=== PATIENT | male | born 1955 | race Asian ===

== ENCOUNTER → 2023-10-27 | Outpatient (CLI) | payer MEDICARE, OTHER, SELFPAY ==
[2023-10-27 16:58] LABS: Cholesterol 188 mg/dL (200); High Density Lipoprotein 72 mg/dL; Triglycerides 125 mg/dL; Uric Acid 7.2 mg/dL (3.5-7.2); Very Low Density Lipoprotein 25 mg/dL (5-40)
== END | disposition home or self-care (01) ==
LOC: BIMLAB 15:33
PROVIDERS: PCP Internal Medicine; Visit Provider Internal Medicine
DX: M10.9 Gout, unspecified (principal); I10 Essential (primary) hypertension
CPT/HCPCS: 36415; 80061; 84550

== ENCOUNTER 2024-07-12 10:00 | Outpatient (RCR) | payer MEDICARE, BC, SELFPAY ==
--- NOTE | 2024-03-16 14:32 | HP.PTEVAL ---
Patient's Visit Information Visit Information Visit Information: NICHO GATICA is a 68 year old M referred to Physical Therapy by ELSI Kenney with a diagnosis of PAIN IN RIGHT SHOULDER ,SHOULDER LESIONS ,LEFT. Date of Evaluation: 03/16/24 Physical Therapist: Marvin Velasquez, PT, Cert MDT, OCS Visit Plan Frequency: 2x /Week Duration: 4 Weeks Plan: PT INTERVENTIONS RTC/SCAPULAR STRENGTHENING ,POSTURAL EX'S ,QUADS/HAMS/HIP STRENGTHENING AND FUNCTIONAL STRENGTHENING WITH PROGRESSION WITH GYM EX'S Subjective Subjective: This 68 y/o male presents to physical therapy with left shoulder pain and and knee pain. Patient has had left shoulder pain many months last July . Seen DR tried injection helped but in October pain started again. Thought to possible tendonitis . Referred to orthopedic Dr next Tue . Prescribed meloxicam.Imaging of shoulder. Aggravating lifting something heavy OH and night.,Feels heavy. Alleviating cortisone injection. Pain described as ache. Patient pain affects sleeping. Pain located located lateral deltoid. Patient located pain located posterior knee . Aggravating factors resting inactivity in chair feels ache. Pain increase with long rest. Occasionally stairs. No pain at night in knee. Pain in shoulder and knee condition affects QOL and function. Patient goals to decrease pain. 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 Pain Left Shoulder: Pain Intensity (Out of 10): 2 Pain Intensity Range: 10 Objective Objective: POSTURE: rounded shoulders head forward NEURO: denies paresthesia/tingling PALAPTION: posterior right knee AROM: shoulder flexion/abduction 160 pain at ER with OP ,ER 90 ,IR L1 MMT: ( peak force) infraspinatus 10.3 ,supraspinatus 9.1 ,deltoid 11.3 GAIT: reciprocal pattern AROM: supine flexion 0-125 degrees ,0-135 degrees flexion MMT: quads/hams/hip 4/5 ,ankle 5/5 Special Tests R Knee Leonard - Meniscus: Negative R Knee Patellar Grind - PFS: Negative R Knee Medial Patellar Plica - Plica Syndrome: Negative L Shoulder External Rotation Lag Test - RC Tear: Negative L Shoulder Lift Off Test - Subscapular Tear: Negative L Shoulder Drop Sign - IS Test: Negative L Shoulder Empty Can - SS: Positive L Shoulder Neer - Impingement: Positive L Shoulder Adrian Erick - Impingement: Positive L Shoulder Biceps Load Test - Labrum: Negative L Shoulder Speeds Test - Labrum/Biceps: Negative Balance/Special Test Scores Quick DASH Score: 27.2725 Goals Goal 1:: Patient to be I with HEP for shoulder and knee Goal Time Frame: 4-6 Weeks Goal 2:: Patient has to demonstrate 60% improvement with less pain and improved function Goal Time Frame: 4-6 Weeks Goal 3:: Patient to improve peak force RTC by 5-10# to improve OH activities Goal Time Frame: 4-6 Weeks Goal 4:: Patient to improve shoulder oswestry score by 5 points to improve QOL Goal Time Frame: 4-6 Weeks Goal 5:: Patient be able to perform walking ,standing and stairs without symptoms. Goal Time Frame: 4-6 Weeks Rehabilitation Potential Physical Therapy Diagnosis: Patient has left shoulder tendonitis with weakness RTC impairs OH activities and mild pain knee with inactivity thus benefit from skilled PT Rehabilitation Potential: Good Anticipated Interventions Patient/Client Instruction: Educate patient on: Condition and Plan of Care For the Purpose of:: To decrease pain, To increase ROM, To improve muscle performance and motor function, To increase tolerance to activity/condition/position, To improve ability of physical actions for home/community/work/leisure, To improve gait and locomotor functions, To improve health of tissue, To decrease soft tissue restriction, To increase flexibility/ROM, To improve safety and To improve tolerance to ADL's Therapeutic Exercise to Include: Strength training, Postural training, Flexibilty training and Scapular Strength/Stabilization Comment: RTC QUADS/HAMS/HIP For the Purpose of:: To decrease pain, To increase ROM, To improve muscle performance and motor function, To improve ability to perform ADL's, To increase tolerance to activity/condition/position, To improve ability of physical actions for home/community/work/leisure, To improve health of tissue, To decrease soft tissue restriction and To increase flexibility/ROM Text: Thank you for the opportunity to evaluate your patient. For Medicare and Medicare HMO plans, please review the plan of care and approve it. It will need to be FAXED BACK to us at [phone] for Medicare purposes. For Medicare only, by signing this I certify the plan of care. Please let me know if there are questions or concerns regarding this plan of care. Physician Signature: Date:
--- NOTE | 2024-04-25 09:55 | HP.PTREVAL ---
Re-Evaluation Intro: ELSI Kenney, It has been my pleasure to treat NICHO GATICA over the last 9 visits for PAIN IN RIGHT SHOULDER ,SHOULDER LESIONS ,LEFT. Please see the progress note below for an update on the physical therapy plan of care! Subjective Subjective: Doing alot better knee no pain ~ 90 % better Objective Objective/Function: *Patient with benefit from skilled PT to increase strength RTC and decrease pain goals are updated and appropriate* POSTURE: rounded shoulders head forward NEURO: denies paresthesia/tingling PALAPTION: posterior right knee AROM: shoulder flexion/abduction 160 pain at ER with OP ,ER 90 ,IR L1 MMT: ( peak force) infraspinatus 16.9 ,supraspinatus 17.1 ,deltoid 21..3 GAIT: reciprocal pattern AROM: supine flexion 0-125 degrees ,0-135 degrees flexion MMT: quads/hams/hip 4/5 ,ankle 5/5 Plan Plan Plan: PT INTERVENTIONS RTC/SCAPULAR STRENGTHENING ,POSTURAL EX'S ,QUADS/HAMS/HIP STRENGTHENING AND FUNCTIONAL STRENGTHENING WITH PROGRESSION WITH GYM EX'S Balance/Gait/Functional tests Balance/Special Test Scores Quick DASH Score: 18.1800 Goals Goals Goal 1:: Patient to be I with HEP for shoulder and knee Goal Time Frame: 4-6 Weeks Goal Progress: Progressing Goal 2:: Patient has to demonstrate 70% improvement with less pain and improved function( new goals) Goal Time Frame: 4-6 Weeks Goal 3:: Patient to improve peak force RTC by 5-10# to improve OH activities( new goal) Goal Time Frame: 4-6 Weeks Goal 4:: Patient to improve shoulder oswestry score by 5 points to improve QOL( new goal) Goal Time Frame: 4-6 Weeks Goal 5:: Patient be able to perform walking ,standing and stairs without symptoms. Goal Time Frame: 4-6 Weeks Goal Progress: Progressing Anticipated Interventions Anticipated Interventions Patient/Client Instruction: Educate patient on: Condition and Plan of Care For the Purpose of:: To decrease pain, To increase ROM, To improve muscle performance and motor function, To increase tolerance to activity/condition/position, To improve ability of physical actions for home/community/work/leisure, To improve gait and locomotor functions, To improve health of tissue, To decrease soft tissue restriction, To increase flexibility/ROM, To improve safety and To improve tolerance to ADL's Therapeutic Exercise to Include: Strength training, Postural training, Flexibilty training and Scapular Strength/Stabilization Comment: RTC QUADS/HAMS/HIP For the Purpose of:: To decrease pain, To increase ROM, To improve muscle performance and motor function, To improve ability to perform ADL's, To increase tolerance to activity/condition/position, To improve ability of physical actions for home/community/work/leisure, To improve health of tissue, To decrease soft tissue restriction and To increase flexibility/ROM Re-Evaluation Ending Re-evaluation ending: Please do not hesitate to contact me at [phone] by phone or if you have questions or concerns regarding this new plan of care! Sincerely, Marvin Velasquez, PT, Cert MDT, OCS
--- NOTE | 2024-07-12 10:48 | HP.PTDCSUM_ITS ---
Discharge Summary D/C summary: It has been my pleasure to treat NICHO GATICA referred by ELSI Kenney, with the diagnosis of PAIN IN RIGHT SHOULDER ,SHOULDER LESIONS ,LEFT for a total of 18 visit(s). Discharge Date: 07/12/24 Please see the following information for a summary of their discharge status. Subjective Subjective: Seems to be worse .. in left shoulder not better overall Pain is worse with sleeping Pain Left Shoulder: Pain Intensity (Out of 10): 2 Overall Improvement % Improvement: 70 Objective Objective/Function: NEURO: denies paresthesia/tingling PALAPTION: posterior right knee AROM: shoulder flexion/abduction 160 ,ER 90 ,IR L1 MMT: ( peak force) infraspinatus 18.1 ,supraspinatus 19.5 ,deltoid 21..3 GAIT: reciprocal pattern AROM: supine flexion 0-1355 degrees ,0-135 degrees flexion MMT: quads/hams/hip 4/5 ,ankle 5/5 Goals Goal 1:: Patient to be I with HEP for shoulder and knee Goal Progress: Goal Met Goal 2:: Patient has to demonstrate 70% improvement with less pain and improved function( new goals) Goal Progress: Goal Met Goal 3:: Patient to improve peak force RTC by 5-10# to improve OH activities( ne w goal) Goal Progress: Progressing Goal 4:: Patient to improve shoulder oswestry score by 5 points to improve QOL( new goal) Goal Progress: Progressing Goal 5:: Patient be able to perform walking ,standing and stairs without symptoms. Goal Progress: Progressing Plan Plan: RTD D/C Information Discharge Comments: HEP d/c sentence: If there are questions or concerns regarding this patient's physical therapy, please feel free to call me at [phone]. Thank you for the referral of this patient. Sincerely, Marvin Velasquez, PT, Cert MDT, OCS Balance/Gait/Functional tests Balance/Special Test Scores Quick DASH Score: 18.1800 Improvement % Improvement: 70
== END 2024-07-12 19:00 | disposition home or self-care (01) ==
LOC: PT 10:00
PROVIDERS: PCP Internal Medicine; Referring Provider Physician Assistant; Visit Provider Physician Assistant
DX: M25.561 Pain in right knee (principal); M75.82 Other shoulder lesions, left shoulder
CPT/HCPCS: 97110; 97140; 97162; 97530

== ENCOUNTER → 2024-07-26 | Outpatient (CLI) | payer MEDICARE, BC, SELFPAY ==
[2024-07-26 17:11] LABS: Absolute Lymphocyte Count 1.83 X10^3/uL (0.83-4.51); Absolute Neutrophil Count 3.6 X10^3/uL (2.0-7.7); Basophil# 0.03 X10^3/uL; Basophil% 0.5 % (0-1); Eosinophil# 0.18 X10^3/uL; Eosinophils% 2.9 % (0-5); Hematocrit 41.5 % (40-54); Hemoglobin 13.3 g/dL (13.0-16.5); Lymphocyte # 1.83 X10^3/ul (0.83-4.51); Lymphocyte % 29.4 % (19-41); Mean Corpuscular Hgb 29.4 pg (27.0-32.0); Mean Corpuscular Volume 91.6 fL (80-94); Mean Platelet Vol. 11.2 fl (6.2-12.0); Monocyte# 0.54 X10^3/uL; Monocyte% 8.7 % (0-10); NRBC Flagged by Analyzer 0 % (0-5); Neutrophil # 3.62 X10^3/uL (2.7-7.7); Neutrophil % 58.2 % (47-70); Platelet Count 197 K/mm3 (150-450); RBC Distribution Width CV 12.9 % (11.6-14.6); RBC Distribution Width SD 43.8 fl (35.1-43.9); Red Blood Count 4.53 M/mm3 (4.6-6.2); White Blood Count 6.2 K/mm3 (4.4-11.0)
[2024-07-26 17:48] LABS: ALB/GLOB Ratio 0.9 RATIO (0.9-2.4); AST(SGOT) 17 U/L (15-37); Alanine Aminotransfer ALT/SGPT 22 U/L (16-61); Albumin, Serum 3.3 g/dL (3.2-5.0); Alkaline Phosphatase 57 U/L (45-117); Anion Gap 6 (5-15); BUN 20 mg/dL (7-18); Calcium,Total 9.2 mg/dL (8.5-10.1); Chloride 106 mmol/L (98-107); Creatinine, Serum 1.11 mg/dL (0.70-1.30); EST Glomerular Filtration Rate 70 mL/min (>60); Est Glom Filt Rate - Afr Amer 84 mL/min (>60); Globulin 3.6 g/dL (2.2-4.2); Glucose 106 mg/dL (74-106); PSA,Total - Annual Screen 5.98 ng/mL (0.00-4.00); Potassium 3.5 mmol/L (3.5-5.1); Protein, Total 6.9 g/dL (6.4-8.2); Sodium Level 140 mmol/L (136-145)
== END | disposition home or self-care (01) ==
LOC: BIMLAB 15:51
PROVIDERS: PCP Internal Medicine; Referring Provider Internal Medicine; Visit Provider Internal Medicine
DX: I10 Essential (primary) hypertension (principal); Z12.5 Encounter for screening for malignant neoplasm of prostate
CPT/HCPCS: 36415; 80053; 84153; 85025; G0103

== ENCOUNTER 2024-07-27 23:53 | Emergency (ER) | payer MEDICARE, BC, SELFPAY ==
[2024-07-27 23:54] VITALS: BP 148/82; PULSE 57; RESP 18; TEMP 36.5; O2SAT 96; BMI 32.3
--- NOTE | 2024-07-28 00:05 | EDS_ITS ---
HPI History of Present Illness Chief Complaint: Laceration Informant: patient and spouse/S.O. Narrative Narrative: 69-year-old male states he was trying to plug something into an outlet in his kitchen, and was right next to the kitchen knives, and his hand accidentally brushed against one of them and he sustained a laceration to his finger as a result. [id number], his right middle finger was affected, he denies any loss of function, numbness. Last tetanus was 3 years ago. Tetanus Immunization: <5 years [facility] Medical History Bilateral foot pain Health care maintenance Hypersomnolence Eye abnormalities Fungal dermatitis Hernia (06/13/11) Gout Bone fracture Hyperlipemia Hypertension Home Medications ?Medication ?Instructions ?Recorded ?Last Taken ?Type Kenalog 40 mg/mL suspension for 80 mg (2 mL) intra-art icular ONCE 08/17/23 Unknown Clinic injection (triamcinolone acetonide) Subacromial rotato r cuff impingement #2 mL valsartan 160 1 tab PO QDAY 10/27/23 Unkno wn History mg-hydrochlorothiazide 12.5 mg tablet colchicine 0.6 mg tablet mg PO PRN 11/24/23 Unknown H istory ezetimibe 10 mg-rosuvastatin 20 mg 1 tab PO QDAY #90 t abs 06/22/24 Unknown Rx tablet amlodipine 10 mg tablet 10 mg PO DAILY #90 TABLETS 0 07/11/24 Unknown Rx Allergy/AdvReac Type Severity Reaction Status Date / Time Penicillins Allergy Mild Rash Verified 07/27/24 23:54 Family History Father Alcoholic Myocardial infarction Heart disease Hypertension High cholesterol Brother Age: 76 Myocardial infarction Surgical History History of tonsillectomy (06/07/1965) History of colonoscopy (06/07/23) Hx of tonsillectomy H/O hernia repair Social History adopted: No household members: spouse current occupational status: employed 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 [employer] current occupational exposures/hazards: No pets and animals: No history of recent travel: Yes sexually active: Yes Smoking Status: Former smoker quit date: 06/27/96 Tobacco: How many years used: 29 second hand exposure: No alcohol intake: current alcohol intake frequency: 0-2 drinks per day substance use type: does not use well-balanced diet: daily or most days caffeine: Yes eating out: rarely or never during the past year weight has: remained stable frequency: daily duration: 30-45 minutes/day seatbelt use: always do you feel safe at home: Yes ROS ROS ED Constitutional Constitutional ED: Denies chills or fever(s) Musculoskeletal Musculoskeletal: Reports extremity pain; Denies neck pain Integumentary Reports laceration; Denies Abrasions or rash Neurologic Neurologic: Denies paresthesias or weakness EXAM Physical Exam Const Vital Signs: 07/27/24 23:54 Temperature 97.7 F L Temperature Source Oral Pulse Rate 57 L Respiratory Rate 18 Blood Pressure 148/82 H Blood Pressure Mean 104 Pulse Ox 96 Oxygen Delivery Method Room Air Positive well nourished and well developed General Appearance ED: well developed and NAD Neck full ROM and supple Back/Spine normal ROM and normal to inspection Extremity Extremity Narrative: 3 cm jagged laceration, mostly linear, clean appearing, to the dorsal radial aspect of the right long finger across the PIPJ. I do not see any extensor involvement, just subcutaneous fat. It is full-thickness. Extensor mechanism is intact against resistance without pain, FDS and FDP are intact without difficulty. There is no bony tenderness. No deformity. Neuro oriented x3, no focal motor deficits and no sensory deficits noted Sensorium / Orientation: alert Psych mental status grossly normal and thought process normal Skin no wounds Rashes: no rashes MDM MDM MDM Narrative Medical decision making narrative: Laceration was repaired and dressed with bacitracin see the procedure note. Tolerated well by the patient. This was a flap shaped, Y shaped laceration. It was mostly over the dorsal radial aspect of the proximal phalanx but the distal aspect of it included the PIPJ, requiring more sutures to distribute forces and allow him to bend without opening the wound and tearing sutures. At the level of the dorsal distal aspect of the PIPJ, the extensor tendon is able to be seen and does not appear to be injured. It appears that the laceration involve the subcutaneous tissues just overlying this. I examined the wound through range of the joint. I am giving him plastics information in case he has any issues with mobility of the finger which I do not expect him to have. Procedures Lacerations R middle finger: Length: 3 cm Depth: Sub Q (extensor visible, not injured) Shape: Flap Prep: Sterile Conditions and Chlorhexadine Laceration repair: Irrigated, Lidocaine (1%, 1.5cc), Local and Skin sutures Irrigated (ml): 60 Number of Sutures/Bernie: 8 Suture Information: Ethilon, Simple and 5-0 Discharge Plan Triage Chief Complaint: Laceration ED Provider: Jasiel Villanueva Dx/Rx/DC Orders Clinical Impression: Laceration of right middle finger w/o foreign body w/o damage to nail Instructions: ED Laceration Extremity Prescriptions: No Action valsartan-hydrochlorothiazide 160-12.5 mg tablet 1 tab PO QDAY triamcinolone acetonide [Kenalog] 40 mg/mL suspension 80 mg intra-articular ONCE Qty: 2 0RF colchicine 0.6 mg tablet PO PRN Patient Comments: TAKE 1 TABLET BY MOUTH TWICE A DAY NEEDED ezetimibe-rosuvastatin 10-20 mg tablet 1 tab PO QDAY Qty: 90 0RF amlodipine 10 mg tablet 10 mg PO DAILY Qty: 90 0RF Primary Care Provider: Gardenia Zavala Referrals: Gardenia Zavala MD [Primary Care Provider] - 10-14 Days suture removal (or ER or urgent care for suture removal) Cameron Hagen MD [Med Staff - Active Staff] - (if needed for any finger mobility issues) Print Language: Liberian Disposition Disposition: Home, Self Care
[2024-07-28] MEDS: Lidocaine 1% (20 ml mdv) 20 ML Vial INFILT (00:11)
== END 2024-07-28 01:29 | disposition home or self-care (01) ==
PROVIDERS: Emergency Provider Emergency Medicine; PCP Internal Medicine; Visit Provider Emergency Medicine
DX: S61.212A Laceration without foreign body of right middle finger without damage to nail, initial encounter (principal); W26.0XXA Contact with knife, initial encounter; I10 Essential (primary) hypertension; Z79.899 Other long term (current) drug therapy; Z87.891 Personal history of nicotine dependence
CPT/HCPCS: 12002; 99283

== ENCOUNTER → 2024-07-30 | Outpatient (CLI) | payer MEDICARE, OTHER, SELFPAY ==
--- NOTE | 2024-07-30 09:35 | MRI_ITS ---
PROCEDURE: MRI left shoulder without IV contrast REASON FOR EXAM: Pain TECHNIQUE: Multisequence multiplanar MR images of the left shoulder were obtained without the administration of intravenous contrast. COMPARISON: None. FINDINGS Full-thickness near full width tear of the supraspinatus tendon with a few residual posterior fibers. Tendon retraction measures up to 15 mm at the level of the superior humeral head. Mild superimposed supraspinatus tendinopathy. Mild infraspinatus tendinopathy without discrete tear. Subscapularis and teres minor tendons are intact. Mild diffuse fatty marbling of the rotator cuff musculature without loss of muscle bulk. Tendinopathy and split tear of the intracapsular biceps tendon just proximal to its insertion. Mild biceps tenosynovitis. Glenohumeral alignment is maintained. Tearing of the anterosuperior to posterosuperior labrum. Remaining portions of the labrum are grossly intact. No focal full-thickness chondral defects. No significant joint effusion. Mild acromioclavicular joint osteoarthritis including mild capsular edema and small marginal osteophytes. Tiny acromial keel osteophyte. Negative for fracture or marrow replacement. Small amount of fluid in the subacromial/subdeltoid bursa. MRI/Upper Ext Joint Only(Routine) IMPRESSION: 1. Full-thickness near full width tear of the supraspinatus tendon. 2. Mild infraspinatus tendinopathy. 3. Intracapsular biceps tendinopathy and split tear. 4. Tearing of the superior labrum. 5. Mild acromioclavicular joint osteoarthritis. 6. Small amount of fluid in the subacromial/subdeltoid bursa. Reading Location: [facility]
== END | disposition home or self-care (01) ==
PROVIDERS: PCP Internal Medicine; Referring Provider Physician Assistant; Visit Provider Physician Assistant
DX: M25.512 Pain in left shoulder (principal)
CPT/HCPCS: 73221

== ENCOUNTER → 2024-08-01 | Outpatient (CLI) | payer MEDICARE, OTHER, SELFPAY | END | disposition home or self-care (01) | LOC: SL 13:44 | PROVIDERS: PCP Internal Medicine; Referring Provider Internal Medicine; Visit Provider Internal Medicine | DX: G47.10 Hypersomnia, unspecified (principal) | CPT/HCPCS: 95806 ==

== ENCOUNTER → 2024-08-13 | Outpatient (CLI) | payer MEDICARE, OTHER, SELFPAY ==
--- NOTE | 2024-08-13 07:41 | EKG12_ITS ---
Test Reason : PRE OP Blood Pressure : */* mmHG Vent. Rate : 78 BPM Atrial Rate : 78 BPM P-R Int : 186 ms QRS Dur : 84 ms QT Int : 378 ms P-R-T Axes : 48 -35 50 degrees QTcB Int : 430 ms Normal sinus rhythm Left axis deviation Abnormal ECG Confirmed by LALITHA SALTER, LALITO ([id number]), news videotape editor FRANDY WU ([id number]) on 08/13/2024 12:58:17 PM Referred By: Gardenia Zavala Confirmed By: LALITO DOTY MD
[2024-08-13 08:14] LABS: Absolute Lymphocyte Count 2.53 X10^3/uL (0.83-4.51); Absolute Neutrophil Count 3.9 X10^3/uL (2.0-7.7); Basophil# 0.04 X10^3/uL; Basophil% 0.5 % (0-1); Eosinophil# 0.14 X10^3/uL; Eosinophils% 1.9 % (0-5); Hematocrit 41.9 % (40-54); Hemoglobin 13.8 g/dL (13.0-16.5); Lymphocyte # 2.53 X10^3/ul (0.83-4.51); Lymphocyte % 34.2 % (19-41); Mean Corp Hgb Conc 32.9 g/dL (32-36); Mean Corpuscular Hgb 29.9 pg (27.0-32.0); Mean Corpuscular Volume 90.7 fL (80-94); Mean Platelet Vol. 10.8 fl (6.2-12.0); Monocyte# 0.73 X10^3/uL; Monocyte% 9.9 % (0-10); NRBC Flagged by Analyzer 0 % (0-5); Neutrophil # 3.93 X10^3/uL (2.7-7.7); Neutrophil % 53.2 % (47-70); Platelet Count 197 K/mm3 (150-450); RBC Distribution Width CV 13.1 % (11.6-14.6); RBC Distribution Width SD 43.5 fl (35.1-43.9); Red Blood Count 4.62 M/mm3 (4.6-6.2); White Blood Count 7.4 K/mm3 (4.4-11.0)
[2024-08-13 08:39] LABS: Anion Gap 8 (5-15); BUN 22 mg/dL (7-18); BUN/Creat Ratio 17.9 RATIO (10-20); Calcium,Total 9.9 mg/dL (8.5-10.1); Chloride 101 mmol/L (98-107); Creatinine, Serum 1.23 mg/dL (0.70-1.30); EST Glomerular Filtration Rate 62 mL/min (>60); Est Glom Filt Rate - Afr Amer 75 mL/min (>60); Glucose 111 mg/dL (74-106); Potassium 3.7 mmol/L (3.5-5.1); Sodium Level 139 mmol/L (136-145)
== END | disposition home or self-care (01) ==
LOC: PSN 07:40
PROVIDERS: Student in an Organized Health Care Education/Training Program; PCP Internal Medicine; Referring Provider Internal Medicine; Visit Provider Internal Medicine
DX: Z01.818 Encounter for other preprocedural examination (principal)
CPT/HCPCS: 36415; 80048; 85025; 93005

== ENCOUNTER 2025-02-06 15:00 | Outpatient (RCR) | payer MEDICARE, BC, OTHER, SELFPAY ==
--- NOTE | 2024-08-28 16:41 | HP.PTEVAL_ITS ---
Patient's Visit Information Visit Information Visit Information: NICHO GATICA is a 69 year old M referred to Physical Therapy by ELSI Ramirez with a diagnosis of STRAIN OF MUSCLE/TENDON RTC OF LEFT SHOULDER,SUPERIOR GELNOID LABRUM LESION. Date of Evaluation: 08/28/24 Physical Therapist: Marvin Velasquez, PT, Cert MDT, OCS Visit Plan Frequency: 2x /Week Duration: 12 WEEKS Plan: *left arthroscopic RTC repair ( supraspinatus) ,subacromial decompression ,distal clavicle excision ,labral debridement mini open subpectoral biceps tenodesis on Aug 15 * SLING 4-6 WEEKS SEE GUIDELINES FOR RTC REPAIR WITH BICEPS TENODESIS PRECAUTIONS ER 40 DEGREES BICEPS TENODESIS PT INTERVENTIONS MANUAL THERAPY ,PROM PHASE 1 ,AAROM PHASE 2 ,THEN STRENGTHENING RTC/SCAPULAR ,POSTURAL EX'S ,CP/MHP Subjective Subjective: This 69 y/o male presents to physical therapy with left arthroscopic RTC repair ( supraspinatus) ,subacromial decompression ,distal clavicle excision ,labral debridement mini open subpectoral biceps tenodesis on Aug [address] Pabon at [facility] . Patient had nerve block ,initially oxycodone which patient stopped and has sling on 4-6 weeks per MD. Patient return to October 04. Patient seen nurse today to remove sutures. Patient has minimal pain. Denies paresthesia/tingling -. Patient has sleeping in recliner. Patient tried PT prior to surgery and had MRI to show tear RTC.Patient condition affects QOL and function. Patient goals to return to prior level of function with shoulder. 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 [facility] Pain Left Shoulder: Pain Intensity (Out of 10): 2 Pain Intensity Range: N/A Objective Objective: POSTURE: mild forward posture OBSERVATION: ecchymosis bicep INCISION: dry incision NEURO: denies paresthesia/tingling PROM: shoulder flexion 95 ,abduction in scaption 95 degrees ,30 Degrees with patient required multiple cues to relax due to muscle quarding Elbow ROM 0-125 degrees MMT: 0 peak force ( not tested) Balance/Special Test Scores Quick DASH Score: 79.5450 Goals Goal 1:: Patient to be I with HEP shoulder RTC Goal Time Frame: 8-12 Weeks Goal 2:: Patient to improve AROM shoulder flexion 140 degrees , abduction 140 degrees , ER 90 degrees for ADLS Goal Time Frame: 8-12 Weeks Goal 3:: Patient to improve peak force RTC /deltoid by 10-15# to improve ADLS and activities above 90 degrees Goal Time Frame: 8-12 Weeks Goal 4:: Patient to improve quick dash by 10 points to improve QOL Goal Time Frame: 8-12 Weeks Goal 5:: Patient to demonstrate 70% improvement with function and less pain. Goal Time Frame: 8-12 Weeks Rehabilitation Potential Physical Therapy Diagnosis: This patient underwent s/p RTC Repair ( supraspinatus ) ,debridement labral ,decompression ,bicep tenodesis on 08/15 with decrease ROM ,weakness ,impairs ADLS and self hygiene thus benefit from skilled PT Rehabilitation Potential: Good Anticipated Interventions Patient/Client Instruction: Educate patient on: Condition and Plan of Care For the Purpose of:: To decrease pain, To increase ROM, To improve muscle performance and motor function, To improve ability to perform ADL's, To increase tolerance to activity/condition/position, To improve ability of physical actions for home/community/work/leisure, To improve health of tissue, To decrease soft tissue restriction, To increase flexibility/ROM, To assume or resume ADL's and To improve tolerance to ADL's Therapeutic Exercise to Include: Strength training, Postural training, Flexibilty training, Passive ROM, Active ROM and Scapular Strength/Stabilization Comment: SEE GUIDELINES FOR RTC REPAIR WITH BICEPS TENODESIS PRECAUTIONS For the Purpose of:: To decrease pain, To increase ROM, To improve nutrient delivery to tissue, To increase oxygenation perfusion, To improve muscle performance and motor function, To improve ability to perform ADL's, To increase tolerance to activity/condition/position, To improve ability of physical actions for home/community/work/leisure, To improve health of tissue, To decrease soft tissue restriction, To increase flexibility/ROM, To assume or resume ADL's, To reduce risk of recurrence and To improve tolerance to ADL's Manual Therapy Techniques to Include: Manipulation For the Purpose of:: To increase ROM Text: Thank you for the opportunity to evaluate your patient. For Medicare and Medicare HMO plans, please review the plan of care and approve it. It will need to be FAXED BACK to us at [phone] for Medicare purposes. For Medicare only, by signing this I certify the plan of care. Please let me know if there are questions or concerns regarding this plan of care. Physician Signature: Date:
--- NOTE | 2024-09-27 11:22 | HP.PTREVAL ---
Re-Evaluation Intro: ELSI Ramirez, It has been my pleasure to treat NICHO GATICA over the last 9 visits for STRAIN OF MUSCLE/TENDON RTC OF LEFT SHOULDER,SUPERIOR GELNOID LABRUM LESION. Please see the progress note below for an update on the physical therapy plan of care! Subjective Subjective: Seen DR happy with progress d/c to sling Next phase for ROM 6 weeks Objective Objective/Function: Patient will benefit from skilled PT to progress to next phase 2 with goals appropriate PROM : shoulder flexion 155 degrees ,150 abduction ,ER 65 AROM: shoulder flexion 145 degrees Plan Plan Plan: *left arthroscopic RTC repair (supraspinatus), sub-acromial decompression, distal clavicle excision ,labral debridement mini open sub-pectoral biceps tenodesis on Aug 15 * _ROM FOR NEXT 6 WEEKS PER MD SEE GUIDELINES FOR RTC REPAIR WITH BICEPS TENODESIS PRECAUTIONS PT INTERVENTIONS MANUAL THERAPY ,PROM PHASE 1 ,AAROM PHASE 2 ,THEN STRENGTHENING RTC/SCAPULAR ,POSTURAL EX'S ,CP/MHP Balance/Gait/Functional tests Balance/Special Test Scores Quick DASH Score: 79.5450 Goals Goals Goal 1:: Patient to be I with HEP shoulder RTC Goal Time Frame: 8-12 Weeks Goal Progress: Progressing Goal 2:: Patient to improve AROM shoulder flexion 155 degrees , abduction 150 degrees , ER 90 degrees for ADLS and IR Goal Time Frame: 8-12 Weeks Goal Progress: Progressing Goal 3:: Patient to improve peak force RTC /deltoid by 10-15# to improve ADLS and activities above 90 degrees Goal Time Frame: 8-12 Weeks Goal Progress: Progressing Goal 4:: Patient to improve quick dash by 10 points to improve QOL Goal Time Frame: 8-12 Weeks Goal Progress: Progressing Goal 5:: Patient to demonstrate 70% improvement with function and less pain. Goal Time Frame: 8-12 Weeks Goal Progress: Progressing Anticipated Interventions Anticipated Interventions Patient/Client Instruction: Educate patient on: Condition and Plan of Care For the Purpose of:: To decrease pain, To increase ROM, To improve muscle performance and motor function, To improve ability to perform ADL's, To increase tolerance to activity/condition/position, To improve ability of physical actions for home/community/work/leisure, To improve health of tissue, To decrease soft tissue restriction, To increase flexibility/ROM, To assume or resume ADL's and To improve tolerance to ADL's Therapeutic Exercise to Include: Strength training, Postural training, Flexibilty training, Passive ROM, Active ROM and Scapular Strength/Stabilization Comment: SEE GUIDELINES FOR RTC REPAIR WITH BICEPS TENODESIS PRECAUTIONS For the Purpose of:: To decrease pain, To increase ROM, To improve nutrient delivery to tissue, To increase oxygenation perfusion, To improve muscle performance and motor function, To improve ability to perform ADL's, To increase tolerance to activity/condition/position, To improve ability of physical actions for home/community/work/leisure, To improve health of tissue, To decrease soft tissue restriction, To increase flexibility/ROM, To assume or resume ADL's, To reduce risk of recurrence and To improve tolerance to ADL's Manual Therapy Techniques to Include: Manipulation For the Purpose of:: To increase ROM Re-Evaluation Ending Re-evaluation ending: Please do not hesitate to contact me at [phone] by phone or if you have questions or concerns regarding this new plan of care! Sincerely, Marvin Velasquez PT, Cert MDT, OCS
--- NOTE | 2024-10-25 11:03 | HP.PTREVAL ---
Re-Evaluation Intro: ELSI Ramirez, It has been my pleasure to treat NICHO GATICA over the last 17 visits for STRAIN OF MUSCLE/TENDON RTC OF LEFT SHOULDER,SUPERIOR GELNOID LABRUM LESION. Please see the progress note below for an update on the physical therapy plan of care! Subjective Subjective: Pain with sleeping Plan to see November 06 Objective Objective/Function: Patient will benefit from skilled PT to progress to next phase with strengthening in 2 weeks per MD AROM: shoulder flexion 150 degrees,abduction 160 ,IR T11 , ER 80 degrees MMT: ( peak force) infraspinatus 11.1 ,supraspinatus 13.2 ,subscapularis 14.2 , Plan Plan Plan: *left arthroscopic RTC repair (supraspinatus), sub-acromial decompression, distal clavicle excision ,labral debridement mini open sub-pectoral biceps tenodesis on Aug 15 * _ROM FOR NEXT 6 WEEKS PER MD 2MORE WEEKS SEE GUIDELINES FOR RTC REPAIR WITH BICEPS TENODESIS PRECAUTIONS PT INTERVENTIONS MANUAL THERAPY ,PROM PHASE 1 ,AAROM PHASE 2 ,THEN STRENGTHENING RTC/SCAPULAR ,POSTURAL EX'S ,CP/MHP Balance/Gait/Functional tests Balance/Special Test Scores Quick DASH Score: 79.5450 Goals Goals Goal 1:: Patient to be I with HEP shoulder RTC Goal Time Frame: 8-12 Weeks Goal Progress: Progressing Goal 2:: Patient to improve AROM shoulder flexion 160 degrees , abduction 160 degrees , ER 90 degrees for ADLS and IR ( new goal) Goal Time Frame: 8-12 Weeks Goal Progress: Progressing Goal 3:: Patient to improve peak force RTC /deltoid by 10-15# to improve ADLS and activities above 90 degrees Goal Time Frame: 8-12 Weeks Goal Progress: Progressing Goal 4:: Patient to improve quick dash by 10 points to improve QOL Goal Time Frame: 8-12 Weeks Goal Progress: Progressing Goal 5:: Patient to demonstrate 70% improvement with function and less pain. Goal Time Frame: 8-12 Weeks Goal Progress: Progressing Anticipated Interventions Anticipated Interventions Patient/Client Instruction: Educate patient on: Condition and Plan of Care For the Purpose of:: To decrease pain, To increase ROM, To improve muscle performance and motor function, To improve ability to perform ADL's, To increase tolerance to activity/condition/position, To improve ability of physical actions for home/community/work/leisure, To improve health of tissue, To decrease soft tissue restriction, To increase flexibility/ROM, To assume or resume ADL's and To improve tolerance to ADL's Therapeutic Exercise to Include: Strength training, Postural training, Flexibilty training, Passive ROM, Active ROM and Scapular Strength/Stabilization Comment: SEE GUIDELINES FOR RTC REPAIR WITH BICEPS TENODESIS PRECAUTIONS For the Purpose of:: To decrease pain, To increase ROM, To improve nutrient delivery to tissue, To increase oxygenation perfusion, To improve muscle performance and motor function, To improve ability to perform ADL's, To increase tolerance to activity/condition/position, To improve ability of physical actions for home/community/work/leisure, To improve health of tissue, To decrease soft tissue restriction, To increase flexibility/ROM, To assume or resume ADL's, To reduce risk of recurrence and To improve tolerance to ADL's Manual Therapy Techniques to Include: Manipulation For the Purpose of:: To increase ROM Re-Evaluation Ending Re-evaluation ending: Please do not hesitate to contact me at [phone] by phone or if you have questions or concerns regarding this new plan of care! Sincerely, Marvin Velasquez, PT, Cert MDT, OCS
--- NOTE | 2024-11-26 10:55 | HP.PTREVAL ---
Re-Evaluation Intro: ELSI Ramirez, It has been my pleasure to treat NICHO GATICA over the last 26 visits for STRAIN OF MUSCLE/TENDON RTC OF LEFT SHOULDER,SUPERIOR GELNOID LABRUM LESION. Please see the progress note below for an update on the physical therapy plan of care! Subjective Subjective: Seen DR provided provided order in October with PT Sore at night , Objective Objective/Function: Patient will benefit from skilled PT to progress to next phase with strengthening for ADLS and function with goals are appropriate AROM: shoulder flexion 150 degrees,abduction 160 ,IR T11 , ER 90 degrees ,IR L4 MMT: ( peak force) infraspinatus 11.2 ,supraspinatus 13.8 ,subscapularis 14.2 , 12.4 deltoid Plan Plan Plan: *left arthroscopic RTC repair (supraspinatus), sub-acromial decompression, distal clavicle excision ,labral debridement mini open sub-pectoral biceps tenodesis on Aug 15 SEE GUIDELINES FOR RTC REPAIR WITH BICEPS TENODESIS PRECAUTIONS PT INTERVENTIONS MANUAL THERAPY ,rROM ,THEN STRENGTHENING RTC/SCAPULAR ,POSTURAL EX'S ,CP/MHP Balance/Gait/Functional tests Balance/Special Test Scores Quick DASH Score: 34.0900 Goals Goals Goal 1:: Patient to be I with HEP shoulder RTC Goal Time Frame: 8-12 Weeks Goal Progress: Progressing Goal 2:: Patient to improve AROM shoulder flexion 160 degrees , abduction 160 degrees , ER 90 degrees for ADLS and IR ( new goal) Goal Time Frame: 8-12 Weeks Goal Progress: Progressing Goal 3:: Patient to improve peak force RTC /deltoid by 10-15# to improve ADLS and activities above 90 degrees ( new goal) Goal Time Frame: 8-12 Weeks Goal Progress: Progressing Goal 4:: Patient to improve quick dash by 10 points to improve QOL Goal Time Frame: 8-12 Weeks Goal Progress: Progressing Goal 5:: Patient to demonstrate 70% improvement with function and less pain. Goal Time Frame: 8-12 Weeks Goal Progress: Progressing Anticipated Interventions Anticipated Interventions Patient/Client Instruction: Educate patient on: Condition and Plan of Care For the Purpose of:: To decrease pain, To increase ROM, To improve muscle performance and motor function, To improve ability to perform ADL's, To increase tolerance to activity/condition/position, To improve ability of physical actions for home/community/work/leisure, To improve health of tissue, To decrease soft tissue restriction, To increase flexibility/ROM, To assume or resume ADL's and To improve tolerance to ADL's Therapeutic Exercise to Include: Strength training, Postural training, Flexibilty training, Passive ROM, Active ROM and Scapular Strength/Stabilization Comment: SEE GUIDELINES FOR RTC REPAIR WITH BICEPS TENODESIS PRECAUTIONS For the Purpose of:: To decrease pain, To increase ROM, To improve nutrient delivery to tissue, To increase oxygenation perfusion, To improve muscle performance and motor function, To improve ability to perform ADL's, To increase tolerance to activity/condition/position, To improve ability of physical actions for home/community/work/leisure, To improve health of tissue, To decrease soft tissue restriction, To increase flexibility/ROM, To assume or resume ADL's, To reduce risk of recurrence and To improve tolerance to ADL's Manual Therapy Techniques to Include: Manipulation For the Purpose of:: To increase ROM Re-Evaluation Ending Re-evaluation ending: Please do not hesitate to contact me at [phone] by phone or if you have questions or concerns regarding this new plan of care! Sincerely, Marvin Velasquez, PT, Cert MDT, OCS
--- NOTE | 2024-12-19 15:47 | HP.PTEVAL2_ITS ---
Patient's Visit Information Visit Information Visit Information: NICHO GATICA is a 69 year old M referred to Physical Therapy by ELSI Ramirez with a diagnosis of UNILATERAL PRIMARY OSTEOARTHRITIS ,LEFT KNEE. Date of Evaluation: 12/19/24 Physical Therapist: Marvin Velasquez, PT, Cert MDT, OCS Visit Plan Frequency: 2x /Week Duration: 4 Weeks Plan: PT INTERVENTIONS ROM KNEE ,STRENGTHENING QUADS/HAMS/HIP ,FUNCTIONAL STRENGTHENING AND FLEXABILITY LEFT LEG Subjective Subjective: A 69 year old male presents with left side global knee pain. 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 Pt denies any numbness and tingling in L knee or leg. Pain is worse after prolonged sitting, walking, and getting out of chair makes it feel stiff and aching. Coming down stairs knee feel unsteady unstable so he grabs for wall or handrail often. Pt reports having no pain with laying down and no night pain or sleep disturbances. Pt reports they had x-rays and it revealed degeneration and bone spurs in L knee. Patient received injection last week and it helped a lot to improve pain. Pt reported have no pain 2 days following injection. Patient has not tried icing or any other remedies other than injection. Patient reports that when pain is the worst it is ~4/10 and at best pain is 0/10. 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 Pain Left Knee: Intensity: 0 Pain Intensity Range: 10 Objective Objective: POSTURE: mild varus, worse of the left PALPATION: mild joint line tenderness medially GAIT: reciprocal pattern AROM: mild decrease with L hip flexion and L knee ext: ~5-120 ; R knee ~5-130 MMT: gross quad/hams: 5/5 ; weak L hip flexion (peak force): 22.2 ; R hip flexion: 42 ; weak L hip abd: 28.3 STAIRS : alternating with rails Special Tests Leonard - Meniscus: Negative Valgus - MCL: Negative Varus - LCL: Negative Patellar Apprehension - PFS: Negative Patellar Grind - PFS: Negative Goals Goal 1:: Patient to be I with HEP for knee Goal Time Frame: 4-6 Weeks Goal 2:: Patient to demonstrate 50% improvement with less pain and improve gait and stairs Goal Time Frame: 4-6 Weeks Goal 3:: Patient to improve AROM supine knee flexion by 5-10 degrees to improve stairs Goal Time Frame: 4-6 Weeks Goal 4:: Patient to improve peak force hips by 5-10# to improve gait and stairs Goal Time Frame: 4-6 Weeks Goal 5:: Patient to improve LFES score by 5 points to improve QOL Goal Time Frame: 4-6 Weeks Rehabilitation Potential Physical Therapy Diagnosis: Patient has left knee pain with DJD with pain decrease ROM ,hip weakness impairs gait and stairs thus benefit from from skilled PT Rehabilitation Potential: Good Anticipated Interventions Patient/Client Instruction: Educate patient on: Condition and Plan of Care For the Purpose of:: To decrease pain, To increase ROM, To improve muscle performance and motor function, To improve ability to perform ADL's, To increase tolerance to activity/condition/position, To improve ability of physical actions for home/community/work/leisure, To improve gait and locomotor functions, To improve health of tissue, To decrease soft tissue restriction, To increase flexibility/ROM, To improve endurance and To improve tolerance to ADL's Therapeutic Exercise to Include: Strength training, Flexibilty training and Active ROM For the Purpose of:: To decrease pain, To increase ROM, To improve muscle performance and motor function, To increase tolerance to activity/co ndition/position, To improve ability of physical actions for home/community/work/leisure, To improve health of tissue, To decrease soft tissue restriction, To increase flexibility/ROM, To reduce risk of recurrence and To improve tolerance to ADL's text: Thank you for the opportunity to evaluate your patient. For Medicare and Medicare HMO plans, please review the plan of care and approve it. It will need to be FAXED BACK to us at [phone] for Medicare purposes. For Medicare only, by signing this I certify the plan of care. Please let me know if there are questions or concerns regarding this plan of care. Physician Signature: Date:
--- NOTE | 2025-02-06 15:38 | HP.PTDCSUM ---
Discharge Summary D/C summary: It has been my pleasure to treat NICHO GATICA referred by ELSI Ramirez, with the diagnosis of STRAIN OF MUSCLE/TENDON RTC OF LEFT SHOULDER,SUPERIOR GELNOID LABRUM LESION for a total of 38 visit(s). Discharge Date: 02/06/25 Please see the following information for a summary of their discharge status. Subjective Subjective: Dr said okay Doing good still have problems sleeping Pain Left Shoulder: Pain Intensity (Out of 10): 0 Overall Improvement % Improvement: 60 Objective Objective/Function: AROM: shoulder flexion 150 degrees,abduction 160 ,IR T11 , ER 90 degrees ,IR L4 MMT: ( peak force) infraspinatus 13.2 ,supraspinatus 15.8 ,subscapularis 16.2 , 12.4 deltoid Goals Goal 1:: Patient to be I with HEP shoulder RTC Goal Progress: Goal Met Goal 2:: Patient to improve AROM shoulder flexion 160 degrees , abduction 160 degrees , ER 90 degrees for ADLS and IR ( new goal) Goal Progress: Goal Met Goal 3:: Patient to improve peak force RTC /deltoid by 10-15# to improve ADLS and activities above 90 degrees ( new goal) Goal Progress: Goal Met Goal 4:: Patient to improve quick dash by 10 points to improve QOL Goal Progress: Goal Met Goal 5:: Patient to demonstrate 70% improvement with function and less pain. Goal Progress: Goal Met Plan Plan: D/C TO HOME PROGRAM AND GYM PROGRAM D/C Information Discharge Comments: HEP d/c sentence: If there are questions or concerns regarding this patient's physical therapy, please feel free to call me at [phone]. Thank you for the referral of this patient. Sincerely, Marvin Velasquez, PT, Cert MDT, OCS Balance/Gait/Functional tests Balance/Special Test Scores Lower Extremity Functional Score: 40 Quick DASH Score: 9.0900 Improvement % Improvement: 60
--- NOTE | 2025-02-06 15:48 | HP.PTDCS(2) ---
Discharge Summary D/C Summary: It has been my pleasure to treat NICHO GATICA referred by ELSI Ramirez, with the diagnosis of UNILATERAL PRIMARY OSTEOARTHRITIS ,LEFT KNEE for a total of 1 visit(s). Discharge Date: 02/06/25 Please see the following information for a summary of their discharge status. Subjective Subjective: Doing good no pain in knee -walking long distances Overall Improvement % Improvement: 100 Objective Objective/Function/Assessment: POSTURE: mild varus, worse of the left PALPATION: mild joint line tenderness medially GAIT: reciprocal pattern AROM: mild decrease with L hip flexion and L knee ext: ~5-120 ; R knee ~5-130 MMT: gross quad/hams: 5/5 ; weak L hip flexion (peak force): 28.2 ; R hip flexion: 42 ; weak L hip abd: 30.3 STAIRS : alternating with rails Goals Patient Goals: Improve Mobility, Improve Function, Decrease Pain, Maneuver Steps and Improve ROM Goal 1:: Patient to be I with HEP for knee Goal Progress: Goal Met Goal 2:: Patient to demonstrate 50% improvement with less pain and improve gait and stairs Goal Progress: Goal Met Goal 3:: Patient to improve AROM supine knee flexion by 5-10 degrees to improve stairs Goal Progress: Goal Met Goal 4:: Patient to improve peak force hips by 5-10# to improve gait and stairs Goal Progress: Goal Met Goal 5:: Patient to improve LFES score by 5 points to improve QOL Goal Progress: Goal Met Plan Plan: D/C D/C Information Discharge Comments: HEP d/c sentence: If there are questions or concerns regarding this patient's physical therapy, please feel free to call me at [phone]. Thank you for the referral of this patient. Sincerely, Marvin Velasquez, PT, Cert MDT, OCS Balance/Special Test Scores Improvement % Improvement: 100
== END 2025-02-06 19:00 | disposition home or self-care (01) ==
LOC: PT 15:00
PROVIDERS: PCP Internal Medicine; Referring Provider Physician Assistant Surgical; Visit Provider Physician Assistant Surgical
DX: S46.012D Strain of muscle(s) and tendon(s) of the rotator cuff of left shoulder, subsequent encounter (principal); S43.432D Superior glenoid labrum lesion of left shoulder, subsequent encounter; M19.012 Primary osteoarthritis, left shoulder
CPT/HCPCS: 97110; 97140; 97162; 97530

== ENCOUNTER 2025-05-14 16:30 | Outpatient (RCR) | payer SELFPAY ==
--- NOTE | 2025-05-16 10:42 | HP.PTDCSUM ---
Discharge Summary D/C summary: It has been my pleasure to treat NICHO GATICA referred by ELSI Hampton, with the diagnosis of L RTC for a total of 3 visit(s). Discharge Date: 05/14/25 Please see the following information for a summary of their discharge status. Subjective Subjective: Pt. reports overall doing about the same. Pt. called doctor and is going to follow up with physician next week. Pain R shoulder: Pain Intensity (Out of 10): 0 Objective Objective/Function: pt. tolerated well. I talked to him about being consistent with the exercises as long as they are not painful. Pt. reports understanding. Goals Goal 1:: pt. to have 0-2/10 L shoulder pain with all ADLs. Goal Progress: Progressing Plan Plan: Pt. will be DC from [facility] this date and is to follow back up with physician. D/C Information d/c sentence: If there are questions or concerns regarding this patient's physical therapy, please feel free to call me at [phone]. Thank you for the referral of this patient. Sincerely, Eamon Rasmussen DPT
== END 2025-05-14 19:00 | disposition home or self-care (01) ==
LOC: PT 16:30
PROVIDERS: PCP Internal Medicine
DX: M17.12 Unilateral primary osteoarthritis, left knee (principal)

== ENCOUNTER 2025-06-10 12:12 | Day surgery (SDC) | payer MEDICARE, BC, OTHER, SELFPAY ==
--- NOTE | 2025-06-04 09:00 | EKG12_ITS ---
Test Reason : PREOP Blood Pressure : */* mmHG Vent. Rate : 65 BPM Atrial Rate : 65 BPM P-R Int : 206 ms QRS Dur : 90 ms QT Int : 402 ms P-R-T Axes : 27 -7 16 degrees QTcB Int : 418 ms Sinus rhythm with marked sinus arrhythmia Otherwise normal ECG Confirmed by Angel Jones ([id number]), editorial intern FRANDY WU ([id number]) on 06/05/2025 11:37:44 AM Referred By: Juventino Pabon Confirmed By: Angel Jones
[2025-06-04 10:55] LABS: Anion Gap 9 (5-15); BUN 20 mg/dL (4-19); BUN/Creat Ratio 24.9 RATIO (10-20); Calcium,Total 9.1 mg/dL (7.6-11.0); Carbon Dioxide 29.3 mmol/L (21.0-32.0); Chloride 104 mmol/L (98-108); Glucose 97 mg/dL (70-99); Potassium 4.0 mmol/L (3.3-5.1)
[2025-06-04 11:01] LABS: Hematocrit 39.2 % (40-54); Hemoglobin 12.7 g/dL (13.0-16.5); Immature Granulocytes Count 0.020 X10^3/uL (0.0-0.0); Mean Corp Hgb Conc 32.4 g/dL (32-36); Mean Corpuscular Volume 92.5 fL (80-94); Mean Platelet Vol. 11.5 fl (6.2-12.0); NRBC Flagged by Analyzer 0 % (0-5); Platelet Count 178 K/mm3 (150-450); RBC Distribution Width CV 13.5 % (11.6-14.6); RBC Distribution Width SD 46.1 fl (35.1-43.9); Red Blood Count 4.24 M/mm3 (4.6-6.2); White Blood Count 6.5 K/mm3 (4.4-11.0)
--- NOTE | 2025-06-04 17:16 | PAT.ANE_ITS ---
Pre-Assessment Diagnosis/Proposed Procedure Planned Operative Procedure(s): (L) LEFT SHOULDER ARTHROSCOPIC REVISION ROTATOR CUFF REPAIR WITH DERMAL ALLOGRAFT AUGMENTATION Anesthesia History Anesthesia History - windows 7 deployment lead: Anesthesia History - windows 7 deployment lead Hx Hospitalization No 05/31/25 08:36 Any Problems With Anesthesia No 05/31/25 08:36 Cholinesterase deficiency No 05/31/25 08:36 You/Your Family Experience No 05/31/25 08:36 fever (hyperthermia) with Relationship Recent Exposure to Contagious Disease Does patient have nerve No 05/31/25 08:36 stimulator Patient instructed to have device shut off --Does patient have Pacemaker or ICD? When Was Last Pacemaker Check QUESTION #4 FULL TEXT: You/Your Family Experience fever (hyperthermia) with Anesthesia Last Oral Intake Last Oral intake: Last Oral Intake NPO since Meds taken in AM with sips of water? Meds patient instructed to take am of surgery PONV PONV - windows 7 deployment lead: PONV - windows 7 deployment lead Female No 05/31/25 08:36 HX of Motion Sickness No 05/31/25 08:36 HX of N/V After Surgery No 05/31/25 08:36 Non-Smoker Yes 05/31/25 08:36 Duration of Surgery greater Yes 05/31/25 08:36 than 60 minutes Number of Risk Factors 2 05/31/25 08:36 PONV Score Moderate Risk 05/31/25 08:36 Height & Weight Height & Weight: Anesthesia: Height & Weight Height 5 ft 10 in 04/29/25 10:54 Respiratory Assessment Respiratory Assessment - windows 7 deployment lead: Respiratory Tract Infection Hx - windows 7 deployment lead Hx Respiratory Tract Infection No 05/31/25 08:36 STOP Sleep Apnea STOP Sleep Apnea - windows 7 deployment lead: STOP Sleep Apnea - windows 7 deployment lead Hx Hypertension Yes: on meds 05/31/25 08:36 Hx Sleep Apnea No 05/31/25 08:36 CPAP BIPAP Do you snore loudly (louder Yes 05/31/25 08:36 than talking or can be heard Do you often feel tired/ No 05/31/25 08:36 fatigued/ sleepy during daytime? Has anyone observed you stop Yes 05/31/25 08:36 breathing during sleep? STOP Results Positive 05/31/25 08:36 QUESTION #5 FULL TEXT : Do you snore loudly (louder than talking or can be heard through closed doors)? 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 Specify any problems Hx of Preganancy in last 3 N/A 05/31/25 08:36 Months Nurse Filling Out Transfusion JZOLLINGE 05/31/25 08:36 & Questions: Date: 05/31/25 05/31/25 08:36 Time: 08:38 05/31/25 08:36 Patient unable to answer at this time (ie. confused, unrespo /Reproduction History /Reproductive History - windows 7 deployment lead: /Reproductive Hx- windows 7 deployment lead Hx Now No 05/31/25 08:36 Gestational Age (in weeks): EDC: Hx Hx Para Hx Section SAB No 05/31/25 08:36 Does the father of the baby or his family experience fever w Father of the baby Malignant Hypertension history comment [facility] Medical History (Updated 05/31/25 @ 08:36 by Bettie Leonard) Wears contact lenses Wears glasses Alcohol use Former smoker Erectile dysfunction Elevated PSA Obstructive sleep apnea Vaccine counseling Preoperative evaluation to rule out surgical contraindication Encounter for removal of sutures Bilateral foot pain Health care maintenance Hypersomnolence Eye abnormalities Fungal dermatitis Hernia (06/13/11) Gout Bone fracture Hyperlipemia Hypertension Home Medications ?Medication ?Instructions ?Recorded ?Last Taken ?Type Kenalog 40 mg/mL suspension for 80 mg (2 mL) intra-art icular ONCE 08/17/23 Unknown Clinic injection (triamcinolone acetonide) Subacromial rotato r cuff impingement #2 mL colchicine 0.6 mg tablet 0.6 mg PO BID PRN gout 11/23 Unknown History amlodipine 10 mg tablet 10 mg PO DAILY #90 TABLETS 1 07/31/24 Unknown Rx ezetimibe 10 mg tablet (Zetia) 10 mg PO QDAY #90 tabs 05/30/25 Unknown Rx rosuvastatin 20 mg tablet 20 mg PO QDAY #90 tabs 05/30 Unknown Rx valsartan 160 1 tab PO QDAY #90 tabs 05/30 Unknown Rx mg-hydrochlorothiazide 12.5 mg tablet Allergy/AdvReac Type Severity Reaction Status Date / Time Penicillins Allergy Mild Rash Verified 05/31/25 08:28 Family History Father Alcoholic Myocardial infarction Heart disease Hypertension High cholesterol Brother Age: 77 Myocardial infarction Surgical History S/P left rotator cuff repair History of tonsillectomy (06/07/1965) History of colonoscopy (06/07/23) Hx of tonsillectomy H/O hernia repair Social History adopted: No household members: spouse current occupational status: employed 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 [employer] current occupational exposures/hazards: No pets and animals: No history of recent travel: Yes sexually active: Yes Smoking Status: Former smoker quit date: 06/27/96 Tobacco: How many years used: 29 second hand exposure: No alcohol intake: current alcohol intake frequency: 0-2 drinks per day substance use type: does not use well-balanced diet: daily or most days caffeine: Yes eating out: rarely or never during the past year weight has: remained stable frequency: daily duration: 30-45 minutes/day seatbelt use: always do you feel safe at home: Yes Audit: Pertinent Findings Pertinent Findings EKG Perinent findings: EKG 08/13/2024. Normal sinus rhythm. Left axis deviation. Recommendation Anesthesia Recommendation Anesthesia recommendation: OPTIMIZED for anesthesia
[2025-06-10] VITALS (8 sets, daily range): BP systolic 111–134; BP diastolic 64–84; PULSE 64–100; RESP 12–18; TEMP 36.1–36.4; O2SAT 94–100; BMI 32.8
[2025-06-10] MEDS: Lactated Ringers 1,000 ML 15 ML IV (12:57)
--- NOTE | 2025-06-10 13:48 | PCM.HP.STD ---
HPI - General General Date of Admission: 06/10/25 Date of Service: 06/10/25 Chief Complaint: Left shoulder pain HPI Narrative NICHO GATICA, is a 70 M who presents for a revision left shoulder rotator cuff repair with dermal allograft augmentation. He previously had arthroscopic rotator cuff repair, subacromial decompression, distal clavicle excision and biceps tenodesis by myself on August 15, 2024. He did well with the surgery but never regained full strength and had persistent pain. A subsequent MRI was ordered and demonstrated incomplete healing and partial tearing of the rotator cuff tear. He wished to proceed with a revision rotator cuff repair with dermal allograft augmentation. No specific injury was identified. He had pain with overhead motion and difficulty sleeping. We have trialed NSAIDs and subacromial corticosteroid injection postoperatively without significant improvement. COUNT INCLUDES THE [facility] Medical History Wears contact lenses Wears glasses Alcohol use Former smoker Erectile dysfunction Elevated PSA Obstructive sleep apnea Vaccine counseling Preoperative evaluation to rule out surgical contraindication Encounter for removal of sutures Bilateral foot pain Health care maintenance Hypersomnolence Eye abnormalities Fungal dermatitis Hernia (06/13/11) Gout Bone fracture Hyperlipemia Hypertension Home Medications ?Medication ?Instructions ?Recorded ?Last Taken ?Type Kenalog 40 mg/mL suspension for 80 mg (2 mL) intra-articular ONCE 08/17/23 Unknown Clinic injection (triamcinolone acetonide) Subacromial rotator cuff impingement #2 mL colchicine 0.6 mg tablet 0.6 mg PO BID PRN gout 11/24/23 Unknown History amlodipine 10 mg tablet 10 mg PO DAILY #90 TABLETS 05/30/25 06/09/25 Rx ezetimibe 10 mg tablet (Zetia) 10 mg PO QDAY #90 tabs 05/30/25 Unknown Rx rosuvastatin 20 mg tablet 20 mg PO QDAY #90 tabs 05/30/25 Unknown Rx valsartan 160 1 tab PO QDAY #90 tabs 05/30/25 06/09/25 Rx mg-hydrochlorothiazide 12.5 mg tablet Allergy/AdvReac Type Severity Reaction Status Date / Time Penicillins Allergy Mild Rash Verified 06/10/25 12:52 Family History Father Alcoholic Myocardial infarction Heart disease Hypertension High cholesterol Brother Age: 77 Myocardial infarction Surgical History S/P left rotator cuff repair History of tonsillectomy (06/07/1965) History of colonoscopy (06/07/23) Hx of tonsillectomy H/O hernia repair Social History adopted: No household members: spouse current occupational status: employed 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 [employer] current occupational exposures/hazards: No pets and animals: No history of recent travel: Yes sexually active: Yes Smoking Status: Former smoker quit date: 06/27/96 Tobacco: How many years used: 29 second hand exposure: No alcohol intake: current alcohol intake frequency: 0-2 drinks per day substance use type: does not use well-balanced diet: daily or most days caffeine: Yes eating out: rarely or never during the past year weight has: remained stable frequency: daily duration: 30-45 minutes/day seatbelt use: always do you feel safe at home: Yes ROS ROS Narrative 12 point review of systems obtained, negative less otherwise noted in HPI. Vital Signs Vital Signs Vital Signs: 06/10/25 12:54 06/10/25 12:54 06/10/25 12:54 Temperature 97 F L Temperature Source Temporal Pulse Rate 64 Respiratory Rate 18 Respiratory Pattern Normal Blood Pressure 125/81 H Blood Pressure Mean 95 Blood Pressure Source Monitor Blood Pressure Position Semi-Fowlers Blood Pressure Location Right Arm Baseline BP 125/81 Pulse Ox 98 Oxygen Delivery Method Room Air Weight Weight: 222 lb 10.67 oz Body Mass Index (BMI) 32.8 Physical Exam Narrative General -A&Ox3, NAD, appears stated age. Vital signs stable, afebrile. Respiratory -normal work of breathing, no intercostal retractions. CV -pulses regular, brisk capillary refill ?4 limbs. Abdomen-soft, nontender, nondistended. No guarding, rigidity, rebound tenderness. Neurologic-cranial nerves II through XII grossly intact. HEENT-normocephalic/atraumatic Left upper extremity: Well-healed incisions without erythema or drainage. Active forward flexion 150 degrees, external rotation 20 degrees. Pain with 4+/5 strength empty can. Negative speeds and Woodbury's. Negative Adrian. Sensation intact throughout. Radial pulse 2+ with brisk capillary refill in the fingertips. Calves are soft and nontender bilaterally Results Lab / Micro Data 06/04/25 09:12 06/04/25 09:12 Assessment & Plan Assessment/Plan (1) Complete rotator cuff tear or rupture of left shoulder, not specified as traumatic: QUALIFIERS: Rotator cuff tear trauma status: nontraumatic Qualified Code(s): M75.122 - Complete rotator cuff tear or rupture of left shoulder, not specified as traumatic PLAN: Patient seen and examined. No change to medical history since being seen in the office. Oxycodone has been prescribed at his preop visit. All questions were answered to patient's satisfaction. Recommended proceeding today with left shoulder revision arthroscopic rotator cuff repair with dermal allograft augmentation. I reviewed the risks, benefits, and alternatives to the procedure. Risks include but are not limited to bleeding, infection, loss of life or limb, need for additional surgery, persistent pain, nonhealing tendon or wounds, risk of anesthesia, DVT or PE, stiffness, neurovascular injury. Informed consent was confirmed with the patient. Further recommendations pending surgery.
--- NOTE | 2025-06-10 14:07 | PRE.ANES_ITS ---
ASA Classification* ASA Classification ASA Classification: 2 Assessment & Plan Anesthesia* Anesthesia Assessment Anesthesia Assessment: Discussed sedation and/or anesthesia options, risks, benefits, and alternatives with patient/parents/legal guardian/POA. Questions invited. The patient/parents/legal guardian/POA seems to understand and agrees to proceed with anesthesia plan. Reviewed the physical assessment, medical history, allergy history and patient home medications list prior to surgery/procedure/anesthetic and documented any changes. Performed airway and anesthesia risk assessments. Anesthesia Type Anesthesia Type: General and Block (Patient consented for interscalene nerve block.) History Source History Obtained from:: Patient and Chart Anesthesia Focused Assessment* Temperature: 97 F Pulse Rate: 64 Blood Pressure: 125/81 Respiratory Rate: 18 Pulse Ox: 98 Oxygen Delivery Method: Room Air Airway Assessment Mouth opens: >3 cm Mallampati Score: III Teeth Condition: Missing (Patient has 1 missing left upper molar #15.) Neck Range of motion (ROM): Limited ROM (Somewhat Decreased) Labs Anesthesia Preop lab: CBC WBC, (4.4-11.0) 6.5 K/mm3 06/04/25, 09:12 RBC, (4.6-6.2) 4.24 M/mm3 L 06/04/25, 09:12 Hgb, (13.0-16.5) 12.7 g/dL L 06/04/25, 09:12 Hct, (40-54) 39.2 % L 06/04/25, 09:12 Plt Count, (150-450) 178 K/mm3 06/04/25, 09:12 CHEMISTRY Potassium, (3.3-5.1) 4.0 mmol/L 06/04/25, 09:12 Sodium, (133-145) 142 mmol/L 06/04/25, 09:12 BUN, (4-19) 20 mg/dL H 06/04/25, 09:12 Creatinine, (0.70-1.20) 0.79 mg/dL 06/04/25, 09:12 Glucose, (70-99) 97 mg/dL 06/04/25, 09:12 COAG Pre-Assessment Diagnosis/Proposed Procedure Planned Operative Procedure(s): (L) LEFT SHOULDER ARTHROSCOPIC REVISION ROTATOR CUFF REPAIR WITH DERMAL ALLOGRAFT AUGMENTATION Anesthesia History Anesthesia History - director heart: Anesthesia History - director heart Hx Hospitalization No 05/31/25 08:36 Any Problems With Anesthesia No 05/31/25 08:36 Cholinesterase deficiency No 05/31/25 08:36 You/Your Family Experience No 05/31/25 08:36 fever (hyperthermia) with Relationship Recent Exposure to Contagious No 06/10/25 12:54 Disease Does patient have nerve No 05/31/25 08:36 stimulator Patient instructed to have device shut off --Does patient have Pacemaker No 06/10/25 12:54 or ICD? When Was Last Pacemaker Check QUESTION #4 FULL TEXT: You/Your Family Experience fever (hyperthermia) with Anesthesia Last Oral Intake Last Oral intake: Last Oral Intake NPO since 20:00 06/10/25 12:54 Meds taken in AM with sips of Yes 06/10/25 12:54 water? Meds patient instructed to take am of surgery Any additional information?: Yes NPO since: 07:30 (Patient had black coffee at 7:30 AM.) Meds taken in AM with sips of water?: No PONV PONV - director heart: PONV - director heart Female No 05/31/25 08:36 HX of Motion Sickness No 05/31/25 08:36 HX of N/V After Surgery No 05/31/25 08:36 Non-Smoker Yes 05/31/25 08:36 Duration of Surgery greater Yes 05/31/25 08:36 than 60 minutes Number of Risk Factors 2 05/31/25 08:36 PONV Score Moderate Risk 05/31/25 08:36 Height & Weight Height & Weight: Anesthesia: Height & Weight Height 5 ft 9 in 06/10/25 12:54 Weight: 101 kg 06/10/25 12:54 Body Mass Index (BMI) 32.8 06/10/25 12:54 Respiratory Assessment Respiratory Assessment - director heart: Respiratory Tract Infection Hx - director heart Hx Respiratory Tract Infection No 05/31/25 08:36 STOP Sleep Apnea STOP Sleep Apnea - director heart: STOP Sleep Apnea - director heart Hx Hypertension Yes: on meds 05/31/25 08:36 Hx Sleep Apnea No 05/31/25 08:36 CPAP BIPAP Do you snore loudly (louder Yes 05/31/25 08:36 than talking or can be heard Do you often feel tired/ No 05/31/25 08:36 fatigued/ sleepy during daytime? Has anyone observed you stop Yes 05/31/25 08:36 breathing during sleep? STOP Results Positive 05/31/25 08:36 QUESTION #5 FULL TEXT : Do you snore loudly (louder than talking or can be heard through closed doors)? 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 Specify any problems Hx of Preganancy in last 3 N/A 05/31/25 08:36 Months Nurse Filling Out Transfusion TANVIR 05/31/25 08:36 & Questions: Date: 05/31/25 05/31/25 08:36 Time: 08:38 05/31/25 08:36 Patient unable to answer at this time (ie. confused, unrespo /Reproduction History /Reproductive History - director heart: /Reproductive Hx- director heart Hx Now No 05/31/25 08:36 Gestational Age (in weeks): EDC: Hx Hx Para Hx Section SAB No 05/31/25 08:36 Does the father of the baby or his family experience fever w Father of the baby Malignant Hypertension history comment Active Medications Active Medications: Current Medications Generic Name Dose Route Start Last Admin Trade Name Freq PRN Reason Stop Dose Admin Lactated Ringer's 1,000 mls @ 15 mls/hr 06/10/25 12:45 06/10/25 12:57 IV 15 mls/hr .Q48H KELI Administration PFSH Medical History Wears contact lenses Wears glasses Alcohol use Former smoker Erectile dysfunction Elevated PSA Obstructive sleep apnea Vaccine counseling Preoperative evaluation to rule out surgical contraindication Encounter for removal of sutures Bilateral foot pain Health care maintenance Hypersomnolence Eye abnormalities Fungal dermatitis Hernia (06/13/11) Gout Bone fracture Hyperlipemia Hypertension Home Medications ?Medication ?Instructions ?Recorded ?Last Taken ?Type Kenalog 40 mg/mL suspension for 80 mg (2 mL) intra-art icular ONCE 08/17/23 Unknown Clinic injection (triamcinolone acetonide) Subacromial rotato r cuff impingement #2 mL colchicine 0.6 mg tablet 0.6 mg PO BID PRN gout 11/23 Unknown History amlodipine 10 mg tablet 10 mg PO DAILY #90 TABLETS 1 07/31/24 06/09/25 Rx ezetimibe 10 mg tablet (Zetia) 10 mg PO QDAY #90 tabs 05/30/25 Unknown Rx rosuvastatin 20 mg tablet 20 mg PO QDAY #90 tabs 05/30 Unknown Rx valsartan 160 1 tab PO QDAY #90 tabs 05/3006/09/25 Rx mg-hydrochlorothiazide 12.5 mg tablet Allergy/AdvReac Type Severity Reaction Status Date / Time Penicillins Allergy Mild Rash Verified 06/10/25 12:52 Family History Father Alcoholic Myocardial infarction Heart disease Hypertension High cholesterol Brother Age: 77 Myocardial infarction Surgical History S/P left rotator cuff repair History of tonsillectomy (06/07/1965) History of colonoscopy (06/07/23) Hx of tonsillectomy H/O hernia repair Social History adopted: No household members: spouse current occupational status: employed 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 [employer] current occupational exposures/hazards: No pets and animals: No history of recent travel: Yes sexually active: Yes Smoking Status: Former smoker quit date: 06/27/96 Tobacco: How many years used: 29 second hand exposure: No alcohol intake: current alcohol intake frequency: 0-2 drinks per day substance use type: does not use well-balanced diet: daily or most days caffeine: Yes eating out: rarely or never during the past year weight has: remained stable frequency: daily duration: 30-45 minutes/day seatbelt use: always do you feel safe at home: Yes Review of Systems (Anesthesia) ROS Narrative System reviewed and no additional complaints, except as documented.
[2025-06-10] MEDS: Midazolam 2 MG/2 ML Syringe IV (14:25)
[2025-06-10] MEDS: Cefazolin 1 GM/5 ML Vial 2 GM IV (14:35)
[2025-06-10] MEDS: Lidocaine 1% (5 ml sdv) 5 ML Vial IV (14:37)
[2025-06-10] MEDS: Epinephrine (1 mg/ml) 1 MG/ML VIAL (15:04)
[2025-06-10] MEDS: fentaNYL 100 MCG/2 ML Ampul IV (16:54)
--- NOTE | 2025-06-10 17:14 | PCM.POST.ANE ---
Anesthesia: Postop Eval I Current Vital Signs Temperature: 97 F Pulse Rate: 95 Blood Pressure: 134/84 Respiratory Rate: 12 Pulse Ox: 98 Oxygen Delivery Method: Nasal Cannula Oxygen Flow Rate (L/min): 2 Assessment Airway patent: Yes Spontaneous unlabored respirations: Yes Mental status: Awake and Calm nausea: No Vomiting: No Anesthesia Complication: No Fluid Hydration Crystalloid volume administer (ml): 1,200 Total IV fluid infused: 1,200 Progress Note Anesthesia document: Postop Eval 1 completed: Yes
--- NOTE | 2025-06-10 17:17 | PCM.OPRPT ---
Operative Report (Standard) Operative Information Date of Procedure: 06/10/25 Pre-Operative Diagnosis: Nonhealing left shoulder rotator cuff tear Post-Operative Diagnosis: Nonhealing left shoulder rotator cuff tear Surgery/Procedure Performed: Revision left shoulder arthroscopic rotator cuff repair with dermal allograft augmentation lockstitch pocket setter: Yes Foam Molder: Liseth Smith Tasks completed by industrial hire sales assistant: Opening & closing, Implanting device and Retracting Additional assistant to the president?: No Type of Anesthesia: General/Regional RN Documented Start/Stop Times: Operation Date: 06/10/25 15:00 Case Time Into Pre-Op 06/10/25 12:30 Anesthesia Start 06/10/25 14:29 Into Room 06/10/25 14:29 Procedure Start 06/10/25 14:55 Procedure End 06/10/25 17:00 Anesthesia End 06/10/25 17:09 Out of Room 06/10/25 17:09 Into Recovery 06/10/25 17:11 Procedure Start Time: 14:55 Procedure Stop Time: 17:00 Select all DRAINS/GRAFTS/IMPLANTS that apply: Graft Graft details: Decellularized dermal allograft and Implanted device Implanted device details: Arthrex triple loaded self punching fiber tack anchor, 4.75 mm bio composite self punching swivel lock anchor, self punching push lock anchor x 2, fiber stitch RC x 4 Estimated Blood Loss: 10 cc Specimen collected: No Description of surgery: Patient was identified in the preoperative holding area by name, medical record number, and date of . The operative extremities marked. All questions answered to the patient's satisfaction. Interscalene block was administered by anesthesia staff. At time of his procedure, patient was brought to the operative suite positioned supine as a operating table. General anesthesia was induced and endotracheal tube placed. Tube was secured. Patient was then positioned in a lateral decubitus position with the left side up. Axillary roll was placed. He was held in place with a beanbag. All bony prominences were well-padded. Bed was spun 45 degrees. We prepped and draped the left upper extremity in a normal, sterile orthopedic fashion. A timeout was called confirming the side, site, and operation to be performed. No concerns were voiced elected to proceed with surgery. 2 g Ancef was administered IV prior to incision by anesthesia staff. Arm was placed in arthroscopic traction with 15 pounds of traction force applied to left arm throughout the arthroscopic portion of the case approximately 100 minutes. Standard posterior portal was established with 11 blade scalpel. Blunt tipped trocar was used to enter the glenohumeral joint which was filled with normal saline with epinephrine. Diagnostic arthroscopy revealed a full-thickness 3 tear 1 nonhealing tendon at the supraspinatus with exposed suture. Remainder of the intra-articular exam was benign with no significant glenohumeral chondromalacia and no loose bodies. Subscapularis was pristine. Previous tenodesis noted with absent long head of biceps tendon. I then withdrew the arthroscope and reentered the shoulder in the subacromial space. Lateral portal was established and passport cannula placed. Adhesions were noted in the subacromial space which were released with cautery. This then exposed the nonhealing tendon at the footprint of the supraspinatus. Old suture material was noted and removed. There appeared to be significant healing along the anterior and posterior margins of the tear. There was a crescent shaped tear approximately 8 x 8 mm without significant retraction. There was also a focal 3 x 3 mm hole in the anterior supraspinatus tissue approximately 1 cm from the footprint. I elected to place a triple loaded fiber tack anchor at the medial margin of the tear. I placed this through the anterior hole to medialize as far as possible. This was placed via percutaneous portal in standard fashion. Suture anchor was set. I then retrieved the suture tails through the crescent shaped tear laterally. A scorpion suture passer was used to sequentially placed the 6 suture limbs through the supraspinatus tissue with the anteriormost limbs reapproximating the smaller tear and [id number] fashion. Corresponding sutures were sequentially tied with good medial compression of the footprint. The footprint was then lightly decorticated with a rasp. A single limb from each suture anchor was then placed through the eyelet of a swivel lock anchor which was placed along the lateral margin of the greater tuberosity. There is excellent medial compression and reapproximation of the supraspinatus tissue to its footprint. I then proceeded with dermal allograft augmentation. Graft was prepared on the back table with the vendor supplied graft passer. Two #1 PDS sutures were placed at the anterior medial and posterior medial corners and 2 FiberLink sutures placed at the anterior lateral and posterior lateral corners. Graft was then placed through the passport cannula. Tissue was approximated to planned orientation. Via percutaneous portal 4 fiber stitch RC devices were used to compress the medial portion of the graft to the underlying rotator cuff with first 2 horizontal mattress sutures. Sutures were tensioned and cut in standard fashion. I then used the remaining [address] a horizontal mattress tissues with 1 passed through the graft and rotator cuff and the other limb of suture through the rotator cuff only immediately adjacent to the graft. These devices were deployed in standard fashion, tensioned and cut flush with the graft. Laterally, the FiberLink sutures were placed through islets of self punching push lock anchors which were used to secure the graft to the greater tuberosity after tensioning in standard fashion. There is excellent compression of the graft to the rotator cuff. Sutures were cut with the anchors. The graft was free of any significant dogears and appeared to be compressing well over the repaired rotator cuff. The subacromial space was then thoroughly lavaged. Instruments were removed. Excess fluid was drained. Portal sites were closed in interrupted buried fashion with 4-0 Monocryl suture, Dermabond and Steri-Strips. He was placed in UltraSling. He tolerated the procedure well without apparent complication. He was safely awakened from anesthesia and extubated in the operative suite. He was transferred to his gurney and subsequently PACU in stable condition. Postoperative plan: Patient be nonweightbearing the upper extremity. Sling x 6 weeks. Delayed motion protocol x 6 weeks. Pendulums only x 6 weeks. Aspirin 81 mg twice daily for DVT prophylaxis x 2 weeks beginning postoperative day #1. Multimodal pain management with Tylenol, NSAIDs and oxycodone as prescribed. Follow-up in 3 days for wound check. Surgical Findings: Nonhealing supraspinatus tear with small 3 x 3 mm new tear noted. Stable fixation. Complications Complications: No Admit VTE Documentation VTE Present on Admission: No VTE Mechan Device Prophylaxis: SCD's VTE Pharm Prophylaxis ordered?: Yes
--- NOTE | 2025-06-10 21:15 | POSTOPAN2_ITS ---
Anesthesia Postop Eval I Sum Postop Eval Completion status Anesthesia document: Postop Eval 1 completed: Yes Anesthesia Postop Eval I Summary Anesthesia Postop Eval I Summary: Anesthesia Postop Eval I: Assessment Summary Airway patent Yes 06/10/25 17:15 [email or web address] [email or web address] Spontaneous unlabored Yes 06/10/25 17:15 PANEL [email or web address] respirations Mental status Awake,Calm 06/10/25 17:15 [email or web address] [email or web address] nausea No 06/10/25 17:15 PANEL [email or web address] Vomiting No 06/10/25 17:15 PANEL [email or web address] Anesthesia Postop Eval I: Fluid Summary Crystalloid volume administer 1,200 06/10/25 17:15 PANEL [email or web address] (ml) Colloids volume administered ( ml) Blood Product volume administered (ml) Total IV fluid infused 1,200 06/10/25 17:15 PANEL [email or web address] Anesthesia Postop Eval I: Summary Notes Anesthesia Complication No 06/10/25 17:15 PANEL [email or web address] Anesthesia Complication Comment: Post-operative progress note Anesthesia: Postop Eval II Evaluation Mental status: Awake and Calm Pain Level: 1 nausea: No Vomiting: No Complications Anesthesia Complication: No
--- NOTE | 2025-06-10 21:15 | PCM.POSTANE2 ---
Anesthesia Postop Eval I Sum Postop Eval Completion status Anesthesia document: Postop Eval 1 completed: Yes Anesthesia Postop Eval I Summary Anesthesia Postop Eval I Summary: Anesthesia Postop Eval I: Assessment Summary Airway patent Yes 06/10/25 17:15 [email or web address] Spontaneous unlabored Yes 06/10/25 17:15 ROUGH [email or web address] respirations Mental status Awake,Calm 06/10/25 17:15 [email or web address] nausea No 06/10/25 17:15 ROUGH [email or web address] Vomiting No 06/10/25 17:15 ROUGH [email or web address] Anesthesia Postop Eval I: Fluid Summary Crystalloid volume administer 1,200 06/10/25 17:15 ROUGH [email or web address] (ml) Colloids volume administered ( ml) Blood Product volume administered (ml) Total IV fluid infused 1,200 06/10/25 17:15 ROUGH [email or web address] Anesthesia Postop Eval I: Summary Notes Anesthesia Complication No 06/10/25 17:15 [email or web address] Anesthesia Complication Comment: Post-operative progress note Anesthesia: Postop Eval II Evaluation Mental status: Awake and Calm Pain Level: 1 nausea: No Vomiting: No Complications Anesthesia Complication: No
== END 2025-06-10 18:41 | disposition home or self-care (01) ==
LOC: SDC 12:17 → AC 12:28
PROVIDERS: PCP Internal Medicine; Referring Provider Student in an Organized Health Care Education/Training Program; Visit Provider Student in an Organized Health Care Education/Training Program
PROC: (CPT 29827; principal; 2025-06-10 14:40)
DX: M75.122 Complete rotator cuff tear or rupture of left shoulder, not specified as traumatic (principal); I10 Essential (primary) hypertension; E78.5 Hyperlipidemia, unspecified; Z79.899 Other long term (current) drug therapy; Z87.891 Personal history of nicotine dependence
CPT/HCPCS: 29827; 15777; 64415; 36415; 80048; 85025; 93005; C1713; Q4125; J2405